=== PATIENT | female | born 1955 | race Caucasian/White ===

== ENCOUNTER 2022-05-15 12:59 | Outpatient (CLI) | payer MEDICARE | END 2022-05-15 13:00 | disposition home or self-care (01) | LOC: CSHCT 12:59 | PROVIDERS: ATTEND Anesthesiology Pain Medicine | DX: M54.12 Radiculopathy, cervical region (principal); Z98.890 Other specified postprocedural states; M47.812 Spondylosis without myelopathy or radiculopathy, cervical region; J92.9 Pleural plaque without asbestos | CPT/HCPCS: 72125 ==

== ENCOUNTER 2022-12-13 11:56 | Outpatient (CLI) | payer MEDICARE | END 2022-12-13 11:57 | disposition home or self-care (01) | LOC: CSHCT 11:56 | PROVIDERS: ATTEND Nurse Practitioner Family | DX: M48.062 Spinal stenosis, lumbar region with neurogenic claudication (principal); Z96.82 Presence of neurostimulator | CPT/HCPCS: 72131 ==

== ENCOUNTER 2023-05-16 09:35 | Day surgery (SDC) | payer MEDICARE ==
[2023-05-16] MEDS ORDERED: Sodium Bicarbonate 2.5 MEQ/5 ML SDV ONE (09:47)
[2023-05-16] MEDS ORDERED: Lidocaine 1% PF 5 ML VIAL ONE (09:47)
[2023-05-16 10:13] VITALS: BP 161/84; TEMP 99
[2023-05-16] MEDS ORDERED: Iopamidol-M 200 41% 10 ML VIAL FS ONE (10:18)
== END 2023-05-16 11:41 | disposition home or self-care (01) ==
LOC: CSHRAD 09:35
PROVIDERS: ATTEND Nurse Practitioner Family
PROC: B02BYZZ Computerized Tomography (CT Scan) of Spinal Cord using Other Contrast (ICD-10-PCS; principal; 2023-05-16)
DX: M48.062 Spinal stenosis, lumbar region with neurogenic claudication (principal)
CPT/HCPCS: 62304; 72132

== ENCOUNTER 2023-05-25 09:02 | Outpatient (CLI) | payer MEDICARE | END 2023-05-25 09:03 | disposition home or self-care (01) | LOC: CSHCT 09:02 | PROVIDERS: ATTEND Anesthesiology Pain Medicine | DX: N28.89 Other specified disorders of kidney and ureter (principal); N28.9 Disorder of kidney and ureter, unspecified; N20.0 Calculus of kidney; Z90.49 Acquired absence of other specified parts of digestive tract | CPT/HCPCS: 74178; 82565 ==